=== PATIENT | male | born 1980 | race Caucasian/White ===

== ENCOUNTER 2016-05-02 20:10 | Emergency (ER) | payer OTHER ==
[~2016-05-02] VITALS: Ht 177.8 cm; Wt 93.2 kg
[2016-05-02 20:25] VITALS: BP 168/86; PULSE 86; RESP 16; O2SAT 100
--- NOTE | 2016-05-02 21:34 | ED.REPORT ---
HPI-Rash / Abscess Date of Service May 02, 2016 ED Provider: Dr. Carlos James Healthy 36-year-old male complains of a red raised lesion where he had been bit by a tick in the past. Evidently he had bitten by a tick on the right anterior chest wall last year. They removed a tick that the head was left behind. He was at a small red bump there today no since become a little more swollen the little tender. He was treated with a course of doxycycline in the past. He does not have fever, chills or any arthritis. He has no other rash. Nursing Notes Stated Complaint: TICK BITE Chief Complaint: Skin Rash/Abscess Nursing Notes Reviewed: Yes Allergies: Coded Allergies: No Known Allergies (Unverified , 05/02/16) General Time Seen by MD: 21:34 Chief Complaint Other (tick bite) Hx Obtained From: Patient Arrived By: Walk-in Onset Occurred: More than a week ago... (>6 months) Context of Onset: Other (tick bite) Symptom Duration: Since onset Severity: Current: No pain currently Recent Healthcare: No recent doctor visit, No recent hospitalization Past Medical History Past Medical History denies Past Surgical History denies Smoking History Unknown if Ever Smoker Ambulatory Status Independent Physical Exam Initial Vital Signs Vital Signs (First) Date Time Temp Pulse Resp B/P Pulse Ox O2 Delivery O2 Flow Rate FiO2 05/02/16 20:25 36.0 86 16 168/86 100 Room Air Head / Eyes: Atraumatic, Normocephalic, PERRL ENT: Mucous membranes moist, Conjunctiva normal, No scleral icterus Neck: Supple, Non-tender, Full range of motion Respiratory: Breath sounds normal, Clear to auscultation, No respiratory distress Cardiovascular: Regular rate & rhythm, Heart sounds normal, Intact distal pulses Abdomen / GI: Soft, Non-tender, No guarding, No rebound, No distention Back: No CVA tenderness Lymphatic: No lymphadenopathy Extremities: Vascular intact, Neuro intact, No swelling, No tenderness Neurologic: Alert, Oriented, Nonfocal Psychiatric: Mood/affect normal, Behavior normal, Normal thought content General/Constitutional: Awake, Alert, No acute distress, Well appearing, Well developed, Well hydrated, Well nourished, Cooperative, Not toxic appearing Color / Condition: Negative: Erythema localized Trauma / Burn / Environmental: Positive: Bite injury 0.5 cm palpable, raised lesion, on left abdomen Re-Eval/Medical Decision Med Decision/Clinical Course Heart is exactly what is going on. This may be some form of a granuloma. Early skin and soft tissue infections possibility. Certainly no signs of Lyme disease or [place] spotted fever. I will place my seven-day course of doxycycline and have outpatient follow-up Counseled Regarding: Diagnosis, Lab results, Need for follow-up, When/why to return to ED Discharge & Departure Impression: Primary Impression: Tick bite of abdomen Encounter type: subsequent encounter Qualified Code: S30.861D - Insect bite (nonvenomous) of abdominal wall, subsequent encounter Disposition: Home Discharge Condition All VS Reviewed: Yes Condition: Stable Additional Instructions: I am giving you a one week course of antibiotics, Doxycycline 2x/day for 7 days. Stay out of sunlight while on the doxycycline. Have the bite looked at next week by your primary care physician if it is not completely resolved. If you develop a rash anywhere else on your body, any new or worsening symptoms, return to the Emergency department for further evaluation. Referrals: Oswaldo Holguin MD (PCP) Scribe Attestation Portion of this note were transcribed by Zeynep Stone. I, Dr. James, personally performed the history, physical exam, and medical decision-making: I reviewed and confirmed the accuracy for the information in the transcribed note. Signed by: viv Aranda, 05/02/16 2300 copies to: Oswaldo Holguin MD, Todd P DO May 02, 2016 21:34 Zeynep Stone May 02, 2016 22:12
[2016-05-02 22:26] VITALS: BP 144/85; PULSE 63; RESP 16; O2SAT 98
== END 2016-05-02 22:28 | disposition home or self-care (01) ==
LOC: SED 20:10
DX: S30.861D Insect bite (nonvenomous) of abdominal wall, subsequent encounter (principal); W57.XXXD Bitten or stung by nonvenomous insect and other nonvenomous arthropods, subsequent encounter; Y93.9 Activity, unspecified; Y92.9 Unspecified place or not applicable; Y99.9 Unspecified external cause status